=== PATIENT | male | born 1975 | race Caucasian/White ===

== ENCOUNTER 2018-03-10 11:10 | Emergency (ER) | payer OTHER ==
[~2018-03-10] VITALS: Ht 182.9 cm; Wt 104.0 kg
[2018-03-10] MEDS ORDERED: METF500T4 PO (11:18)
[2018-03-10 11:22] LABS: GLUCOSE,POINT OF CARE 92 MG/DL (70-110)
[2018-03-10] MEDS ORDERED: METHOCARBAMOL 500 MG TABLET PO ONE (12:45)
[2018-03-10] MEDS ORDERED: HYDROCODONE/ACETAMINOPHEN 5-325 MG TABLET PO ONE (12:45)
[2018-03-10 13:33] VITALS: BP 136/89
== END 2018-03-10 13:36 | disposition home or self-care (01) ==
LOC: EMS 11:12
DX: S16.1XXA Strain of muscle, fascia and tendon at neck level, initial encounter (principal); E11.9 Type 2 diabetes mellitus without complications; Z98.890 Other specified postprocedural states; X58.XXXA Exposure to other specified factors, initial encounter; Y93.89 Activity, other specified; Y92.89 Other specified places as the place of occurrence of the external cause; Y99.8 Other external cause status
CPT/HCPCS: 82962; 99283

== ENCOUNTER 2018-04-04 10:31 | Emergency (ER) | payer OTHER ==
[~2018-04-04] VITALS: Ht 182.9 cm; Wt 104.5 kg
[~2018-04-04 10:31] MED LIST: METF500T6 PO
[2018-04-04 10:47] LABS: GLUCOSE,POINT OF CARE 97 MG/DL (70-110)
[2018-04-04] MEDS ORDERED: TRAM50TA4 PO (10:54)
[2018-04-04 12:03] VITALS: BP 132/80
== END 2018-04-04 12:35 | disposition left against medical advice (07) ==
LOC: EMS 10:32
DX: M25.511 Pain in right shoulder (principal); M54.10 Radiculopathy, site unspecified; E11.9 Type 2 diabetes mellitus without complications; F12.90 Cannabis use, unspecified, uncomplicated
CPT/HCPCS: 99282